=== PATIENT | female | born 1975 | race Hispanic/Latino ===

== ENCOUNTER 2023-10-18 08:31 | Day surgery (SDC) | payer OTHER ==
[2023-10-18] MEDS ORDERED: Bupivacaine 0.25% HCL 30 ML VIAL ONE (10:26)
[2023-10-18] MEDS ORDERED: EPINEPHrine 1 MG/ML VIAL ONE (10:26)
[2023-10-18] MEDS ORDERED: Iopamidol 30 ML ONE ×3 (10:27→13:09)
[2023-10-18] MEDS ORDERED: Famotidine/PF 20 mg/2ml Vial ONE (10:43)
[2023-10-18] MEDS ORDERED: Lidocaine 2% PF 5 ML VIAL ONE (10:52)
[2023-10-18] MEDS ORDERED: PROPOFOL 20 ML ONE (10:52)
[2023-10-18] MEDS ORDERED: Ketorolac Tromethamine 30 MG (1 mL) VIAL ONE (10:52)
[2023-10-18] MEDS ORDERED: Ondansetron PF 4 MG/2 ML Vial ONE (10:52)
[2023-10-18] MEDS ORDERED: Dexamethasone 4 mg/ml Vial ONE (10:52)
[2023-10-18] MEDS ORDERED: Rocuronium Bromide 10 MG/ML (10ML VIAL) ONE (10:52)
[2023-10-18] MEDS ORDERED: Metoclopramide HCl 10 MG (2 mL) VIAL ONE (10:52)
[2023-10-18] MEDS ORDERED: fentaNYL PF 100 MCG/2 ML SYRINGE ONE (11:48)
[2023-10-18] MEDS ORDERED: SUGAMMADEX SODIUM 200 MG/2 ML VIAL ONE (11:49)
[2023-10-18] MEDS ORDERED: SUCCINYLCHOLINE/SOD CL,ISO/PF 200 MG/10 ML SYRINGE FS ONE (12:00)
[2023-10-18] MEDS ORDERED: Midazolam HCl 2 mg/2 ml Vial ONE (12:05)
[2023-10-18] MEDS ORDERED: Promethazine HCl 25 MG/ML VIAL IM PRN (13:36)
[2023-10-18] MEDS ORDERED: Ondansetron HCl/PF 4 MG/2 ML Vial IVP PRN (13:36)
[2023-10-18] MEDS ORDERED: Meperidine HCl/PF 25 MG/ML VIAL SLOW IVP PRN (13:36)
[2023-10-18] MEDS ORDERED: fentaNYL 50 mcg/mL 1 mL Vial ONE ×2 (14:20→16:21)
[2023-10-18] MEDS ORDERED: Ipratropium/Albuterol 3 ML NEB NEB PRN (16:14)
[2023-10-18] MEDS ORDERED: Ondansetron PF 4 MG/2 ML Vial IVP PRN (16:14)
[2023-10-18] MEDS ORDERED: Morphine 2 MG/ML VIAL SLOW IVP PRN (16:14)
[2023-10-18] MEDS ORDERED: Sodium Chloride 0.9% 1,000 ML IV SCH (16:15)
[2023-10-18] MEDS ORDERED: traMADol HCl 50 MG TAB PO PRN (16:16)
[2023-10-18] MEDS ORDERED: Acetaminophen 325 MG TAB PO SCH (16:30)
[2023-10-18] MEDS ORDERED: traMADol HCl 50 MG TAB PO SCH (18:00)
[2023-10-18] MEDS ORDERED: Senokot S 8.6-50 MG TAB PO SCH (21:00)
[2023-10-18] MEDS ORDERED: Famotidine/PF 20 mg/2ml Vial SLOW IVP SCH (21:00)
[2023-10-19] MEDS ORDERED: Polyethylene Glycol 3350 17 GM Packet PO SCH (09:00)
== END 2023-10-18 18:40 | disposition home or self-care (01) ==
LOC: ERS 08:31 → SDC 10:55
PROVIDERS: ATTEND Surgery
PROC: 0FT44ZZ Resection of Gallbladder, Percutaneous Endoscopic Approach (ICD-10-PCS; principal; 2023-10-18)
DX: K80.10 Calculus of gallbladder with chronic cholecystitis without obstruction (principal); I10 Essential (primary) hypertension; E03.9 Hypothyroidism, unspecified; Z79.890 Hormone replacement therapy
CPT/HCPCS: 47532; 74181; 76377; 76705; 88304; A6258; C1713; J0171; J0665; J1100; J1885; J2001; J2250; J2405; J2704; J2765; J3010; Q9967; S0028